=== PATIENT | female | born 1960 | race Caucasian/White ===

== ENCOUNTER 2022-12-20 06:00 | Day surgery (SDC) | payer MEDICAID, OTHER ==
[2022-12-19 14:39] LABS: COVID AG,FIA SOURCE NASAL SWAB
[~2022-12-20] VITALS: Ht 142.2 cm; Wt 52.2 kg
[2022-12-20] MEDS ORDERED: PROPOFOL 1% 20 ML VIAL IVP ONE (06:01)
[2022-12-20] MEDS ORDERED: SODIUM CHLORIDE 0.9% 1,000 ML IV ONE (07:00)
[2022-12-20] MEDS ORDERED: BISM-156 PO (07:03)
[2022-12-20] MEDS ORDERED: ATOR20TA86 PO (07:03)
[2022-12-20] MEDS ORDERED: OMEP20 PO (07:03)
[2022-12-20] MEDS ORDERED: FAMO20 PO (07:03)
[2022-12-20] MEDS ORDERED: LISI-893 PO (07:03)
== END 2022-12-20 10:05 | disposition home or self-care (01) ==
LOC: SURGERY 06:00
PROVIDERS: ATTEND Internal Medicine Gastroenterology
DX: K29.70 Gastritis, unspecified, without bleeding (principal); I10 Essential (primary) hypertension; F41.9 Anxiety disorder, unspecified; Z79.899 Other long term (current) drug therapy; Z20.822 Contact with and (suspected) exposure to COVID-19; Z82.49 Family history of ischemic heart disease and other diseases of the circulatory system
CPT/HCPCS: 87426; 43239; 88305; 88312; 88313; C9803; C1769; J2704